=== PATIENT | male | born 1950 | race African-American/Black ===

== ENCOUNTER 2018-11-08 19:24 | Inpatient (IN) | payer OTHER ==
[~2018-11-08 19:24] MED LIST: ISOVUE-370 76%-LOCM 1 ML ONE
[2018-11-08] MEDS ORDERED: Morphine 4 MG/ML VIAL ONE (19:46)
[2018-11-08] MEDS ORDERED: Ondansetron PF 4 MG/2 ML Vial ONE ×2 (19:46→19:47)
--- NOTE | 2018-11-08 20:04 | RAD ---
Chest one view HISTORY: Chest pain. Vomiting. FINDINGS: No comparison. Cardiac silhouette is Identified by projection. Pulmonary vasculature upper limits of normal. Soft tissue prominence along the right suprahilar level extending to the hilum. No lobar consolidation or evidence of pneumothorax. utilization manager leads overlie the chest. Metallic clips overlie the right axilla. IMPRESSION: Masslike prominence of the right hilum. Prior exams not available for direct comparison. Please consider CT chest for better characterization.
[2018-11-08 20:07] LABS: #Lymphocytes 0.7 thou/uL (1.20-3.40); #Monocytes 0.8 thou/uL (0.11-0.59); #Neutrophils 10.7 thou/uL (1.40-6.50); %Basophils 0.1 % (0.0-1.0); %Eosinophils 0.1 % (0.0-10.0); %Lymphocytes 5.4 % (21.0-51.0); %Monocytes 6.2 % (0.0-10.0); %Neutrophils 88.2 % (42.0-75.0); Mean Corpuscular HGB CONC 32.4 g/dL (32.0-36.0); Mean Corpuscular Hemoglobin 30.6 pg (27.0-31.0); Mean Corpuscular Volume 94.4 fL (78.0-98.0); Mean Platelet Volume 7.5 fL (7.4-10.4); Platelet Count 362 thou/uL (130-400); RBC Distribution Width 14.6 % (11.5-14.5); Red Blood Cell (RBC) Count 4.57 mill/uL (4.70-6.10); White Blood Cell (WBC) Count 12.2 thou/uL (4.8-10.8)
[2018-11-08] MEDS ORDERED: Diltiazem 125 MG/25 ML ONE (22:02)
[2018-11-08 22:14] LABS: Albumin 3.6 g/dL (3.4-4.8)
[2018-11-08 22:15] LABS: Chloride 103 mmol/L (98-107); Potassium 5.5 mmol/L (3.5-5.1); Sodium 137 mmol/L (136-145)
[2018-11-08 22:16] LABS: Calcium 8.8 mg/dL (7.8-10.44)
[2018-11-08 22:17] LABS: Globulin 2.9 g/dL (2.4-3.5); Glucose 79 mg/dL (80-115); Protein, Total 6.5 g/dL (5.8-8.1)
[2018-11-08 22:18] LABS: Anion Gap 25 mmol/L (10-20); Bilirubin, Total 0.9 mg/dL (0.2-1.2); Carbon Dioxide 15 mmol/L (23-31)
[2018-11-08 22:19] LABS: Alkaline Phosphatase 74 U/L (40-150)
[2018-11-08 22:20] LABS: Calc. Creatinine Clearance 0 mL/min (70-130); Estimated GFR-MDRD 71
[2018-11-08 22:21] LABS: BUN (Urea Nitrogen) 10 mg/dL (8.4-25.7)
[2018-11-08 22:22] LABS: ALT (SGPT) 48 U/L (8-55); AST (SGOT) 93 U/L (5-34)
[2018-11-08 22:23] LABS: Lipase 27 U/L (8-78)
[2018-11-08] MEDS ORDERED: Diltiazem HCl 125 MG, Admixture Fee 1 EACH in Sodium Chloride 0.9% 100 ML IVPB SCH (22:30)
[2018-11-08 22:38] LABS: Bilirubin Negative (Negative); Blood, Urine Large (Negative); Clarity CLEAR (Clear); Glucose, Urine (Dipstick) Negative (Negative); Leukocyte Moderate (Negative); Nitrite Negative (Negative); Protein, Urine (Dipstick) 30 mg/dL (Neg-Trace); Specific Gravity, Urine 1.015 (1.002-1.036); pH, Urine 5.5 (5.0-9.0)
[2018-11-08 22:40] LABS: Bacteria/HPF None Seen HPF (None Seen); Hyaline Casts/LPF 4-6 HYALINE CAST LPF (0-3 Hyaline); Pathc Cast-AUWi Flag 0.27 (0-2.49); Squamous Epithelial 0-3 HPF (0-3)
[2018-11-08] MEDS ORDERED: Piperacillin/Tazobactam 4.5 GM VIAL ONE (23:12)
--- NOTE | 2018-11-08 23:36 | PDOC.FPRHP ---
- History of Present Illness Chief Complaint: nausea/vom History of Present Illness: 68 yo M from Retirement with PMH of right sided breast cancer, Hep C, and abdominal mass presents for nausea, vomiting, and abdominal pain. Patient somewhat poor historian. Pt initially reports that it started today after he was constipated, reports green vomitus. Later, he reports that he has had it for the past 1-2 months, since prior to a recent admission where he was found to have an abdominal mass. At that time, he refused to have a biopsy, however he is wishing for further work up today. Reports he has been worked up for blood clot in swollen rt leg he has had for past 1-2 months, that was negative. Reports bright red blood drops on toilet paper occasionally. No fevers, dysuria , hematuria, chest pain or palpitations. Reports he gets SOB when walking 3-4 blocks with walker, or walking 1 flight of stairs. In ED, P 124, R 30, afebrile. New onset afib with RVR. started on diltiazem drip. Started on vanc and zosyn, given fluids. Lactic acid elevated. 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 denies: fever/chills Eyes: denies: eye pain, vision changes ENT: denies: nasal congestion, rhinorrhea Respiratory: reports: shortness of breath. denies: cough, congestion Cardiovascular: denies: chest pain, palpitation Gastrointestinal: reports: nausea, vomiting, diarrhea, constipation, abdominal pain, GI bleeding (BRBPR (few drops on TP only)) Genitourinary: denies: dysuria, other (hematuria) Skin: denies: rashes, lesions Musculoskeletal: reports: pain, swelling (RLE) Neurological: reports: seizure (reports history of remote seizure, does not know why he had one). denies: syncope Psychological: denies: anxiety, depression - Vital signs BP: [103/63] HR: [124] RR: [30] Tmax: [98.7] Pox: [95]% on [RA] Wt: [71.7] - Physical Exam Constitutional: NAD, well developed HEENT: normocephalic and atraumatic, PERRLA, EOMI, conjunctiva clear, MMM, oropharynx clear Neck: supple, no LAD Heart: normal S1/S2, no murmurs/rubs/gallops, other (3+ pitting edema up to thigh; no swelling of scrotum; Tachycardia, regular rhythm) Lungs: CTAB, no respiratory distress, good air movement, no rales/rhonchi Abdomen: soft, bowel sounds present, no masses/distention, other (mild diffuse tenderness of abdomen) Musculoskeletal: normal tone Neurological: no focal deficit, CN II-XII intact Skin: no rash/lesions, good turgor Heme/Lymphatic: no unusual bruising or bleeding, no purpura Psychiatric: other (slurring of speech, normal mood, somewhat poor judgment/ insight) FMR H&P: Results - Labs Result Diagrams: 11/09/18 01:57 11/09/18 01:57 Lab results: WBC 12.2 thou/uL (4.8-10.8) H 11/08/18 19:50 Hgb 14.0 g/dL (14.0-18.0) 11/08/18 19:50 Hct 43.1 % (42.0-52.0) 11/08/18 19:50 MCV 94.4 fL (78.0-98.0) 11/08/18 19:50 Plt Count 362 thou/uL (130-400) 11/08/18 19:50 Neutrophils % 88.2 % (42.0-75.0) H 11/08/18 19:50 Sodium 137 mmol/L (136-145) 11/08/18 21:56 Potassium 5.5 mmol/L (3.5-5.1) H 11/08/18 21:56 Chloride 103 mmol/L (98-107) 11/08/18 21:56 Carbon Dioxide 15 mmol/L (23-31) L 11/08/18 21:56 BUN 10 mg/dL (8.4-25.7) 11/08/18 21:56 Creatinine 1.22 mg/dL (0.7-1.3) 11/08/18 21:56 Glucose 79 mg/dL (80-115) L 11/08/18 21:56 Lactic Acid 5.0 mmol/L (0.5-2.2) H* 11/08/18 22:11 Calcium 8.8 mg/dL (7.8-10.44) 11/08/18 21:56 Total Bilirubin 0.9 mg/dL (0.2-1.2) 11/08/18 21:56 AST 93 U/L (5-34) H 11/08/18 21:56 ALT 48 U/L (8-55) 11/08/18 21:56 Alkaline Phosphatase 74 U/L (40-150) 11/08/18 21:56 Serum Total Protein 6.5 g/dL (5.8-8.1) 11/08/18 21:56 Albumin 3.6 g/dL (3.4-4.8) 11/08/18 21:56 Lipase 27 U/L (8-78) 11/08/18 21:56 Urine Ketones 40 mg/dL (Negative) H 11/08/18 22:22 Urine Blood Large (Negative) H 11/08/18 22:22 Urine Nitrite Negative (Negative) 11/08/18 22:22 Ur Leukocyte Esterase Moderate (Negative) H 11/08/18 22:22 Urine RBC 7-10 HPF (0-3) H 11/08/18 22:22 Urine WBC Greater Than 50-TNTC HPF (0-3) H 11/08/18 22:22 Ur Squamous Epith Cells 0-3 HPF (0-3) 11/08/18 22:22 Urine Bacteria None Seen HPF (None Seen) 11/08/18 22:22 - EKG Interpretation EKG: EKG: Afib with RVR, LAD, septal infarct age undetermined - Radiology Interpretation Chest x-ray Status: image reviewed by me, report reviewed by me Additional comment: mass like prominence Rt hilum FMR H&P: A/P - Problem List (1) Pulmonary embolism Current Visit: Yes Status: Acute Code(s): I26.99 - OTHER PULMONARY EMBOLISM WITHOUT ACUTE COR PULMONALE (2) Sepsis Current Visit: Yes Status: Acute Code(s): A41.9 - SEPSIS, UNSPECIFIED ORGANISM (3) Atrial fibrillation with RVR Current Visit: Yes Status: Acute Code(s): I48.91 - UNSPECIFIED ATRIAL FIBRILLATION (4) Dvt femoral (deep venous thrombosis) Current Visit: Yes Status: Acute Code(s): I82.419 - ACUTE EMBOLISM AND THROMBOSIS OF UNSPECIFIED FEMORAL VEIN (5) Hx of hepatitis C Current Visit: Yes Status: Chronic Code(s): Z86.19 - PERSONAL HISTORY OF OTHER INFECTIOUS AND PARASITIC DISEASES - Plan Suspected Diffuse Metastatic process, seen on CT -uncertain primary source -CT abd/pelvis -Most likely cause of pt abdominal pain, nausea and vomiting -UA showed blood, +WBC, no nitrates or bacteria -Ucx pending -zofran PRN -Consider oncology consult -Palliative consulted for goals of care Sepsis, most likely 2/2 metastasis -UA showed blood, +WBC, no nitrates or bacteria -Ucx pending -Bl cx pending -WBC elevated -Given bolus IV fluids -continue empiric vanc/zosyn until cx return -Procal pending New Onset Afib with RVR - Pt reports no prior cardiac hx - Initially on diltiazem, then taken off when pt jeffery to 40s - Now Pulse stable 90-low 100s - Cardiology consult in AM DVT femoral vein - most likely 2/2 metastasis - continue th lovenox Segmental PE seen on CTA - therapeutic lovenox - pt will need to be most likely bridged to warfarin - PRN O2 Hep C - Pt reports s/p treatment Dispo: admit to tele obs Diet: regular DVT: th lovenox PCP: [facility], [facility] Code status: Full FMR H&P: Upper Level - Pertinent history 68 y/o M presents from [facility] for nausea/vomiting. History not very clear, but pt was recently hospitalized in [place] for 3w. Reportedly masses were seen and pt refused biopsy. Began feeling nauseated this AM with vomiting. States he feels well now without complaints. did present with tachycardia in the 140's.S/p Diltiazem bolus and drip in ED with IVF with improved afib RVR to a rate or 100 upon exam. Pt is a very poor historian. Additionally: PAged at 0430, HR bradycardic into 40's. diltiazem dc't, pulse at 64 upon exam and asymptomatic during entire episode. - Pertinent findings CTA chest:right-sided mediastinal soft tissue mass measuring at least 3.8x7x8.7 cm with compressing and possibly invading the SVC, filling defect within the right lower lobe pulmonary arteries compatible with segmental pulmonary emboli, hydronephrosis of the right kidney which is incompletely visualized, innunemerable soft tissue nodules seen within the upper abdomen suspicious for metastatic disease. CT abd/pelvis: right pelvic iliac chain, left upper quadrant intraperitoneal and splenic masses consistent with neoplasm, compression of the ureters, right greater than left resulting in differential decreased enhancement of the right kidney and moderate hydroureteronephrosis, compression of the right iliac vein with associated right femoral vein thrombosis. CXR: Hilar mass on R seen Lactic Acid 5 - Plan Date/Time: 11/08/18 0227 IZion, have evaluated this patient and agree with findings/plan as outlined by planner intern resident. Pertinent changes/additions are listed here. # Suspected Diffuse Metastasis - Unsure primary location. Oncology consult and would likely proceed with biobsy if a candidate. Likely cause of elevated Lactic acid vs sepsis, but will continue empiric abx until cultures return,. Also consider transfer back to [place] as he has established care there and has had a full workup regarding these problems. Pt likely needs hospice/ palliative care as he has multiple problems relating to presumed cancer. # Afib with RVR - NEw onset and rate controlled on IV diltiazem and plan to transition to PO medication as needed. Goal <110. Of Note, automated pulse machine no accurate; was reading rate 140-160, but upon pulse check pt 100-110. Episode of bradycardia noted into 40's and now off IV diltiazem. S/p 3LNS. # Segmental PE - Continue therapeutic LMWH, Stable respiratory status. O2 PRN for saturations >90%. # R Hydronephrosis - 2/2 ureter obstruction. Will consider nephro consult for possible stent as he did have hematuria on UA. # Gastritis - Likely 2/2 mets. Antiemetic medications PRN. # DVT Femoral vein - 2/2 malignancy. Continue Lovenox at this time and consider discharge on Lovenox. CODE: Full Addendum - Attending - Attending Attestation Date/Time: 11/09/18 6539 I personally evaluated the patient and discussed the management with Dr. Riya Gonzalez/ Mo at 2 am. H&P repeated by me. I agree with the History, Examination, Assessment and Plan documented above with any addition or exceptions noted below. 68 y/o BM who is a very poor historian with PMH of breast mass (unsure if malignancy or not), RLE swelling which he says was evaluated and NOT due to a clot, and several month history of n/v/abdominal pain. Recently has a 3 weeks hospitalization in [place] where he states they found a mass in his abdomen but he declined treatment at that time. Also he notes some kind of irregular heart beat. He presented to our ER for n/v. Found to have T 100.5, afib with RVR (rate 130-150s), elevated lactate. 1)Sepsis with unknown source- started on broad spectrum abx and fluid resuscitation. Fever and 2) Metastatic disease, unknown primary- patient has had significant workup in [place]. Will attempt to transfer patient for continued evaluation there. If unable to transfer will need oncology consult 3) PE and DVT- therapeutic lovenox. secondary to malignancy 4) Hyponephrosis secondary to abdominal masses- if not transferred will probably need urology consult. 5) Afib with RVR- diltiazem gtt at 5. After CT results returned, I had a candid conversation with patient about the results and the grave prognosis. We began to discuss his wishes and the options of palliative care vs. more aggressive workup and treatment. I am unsure if he understands and if he is not transferred will need palliative care consult. He did not give any indication which way he was leaning.
[2018-11-09] MEDS ORDERED: Ondansetron ODT 4 MG TAB PO PRN (01:19)
[2018-11-09] MEDS ORDERED: Acetaminophen 650 MG Suppository PR PRN (01:19)
[2018-11-09] MEDS ORDERED: Acetaminophen 325 MG TAB PO PRN (01:19)
[2018-11-09] MEDS ORDERED: Bisacodyl 5 MG TAB PO SCH (01:30)
[2018-11-09] MEDS ORDERED: Vancomycin HCl 1.25 GM in Sodium Chloride 0.9% 250 ML 250 ML IVPB SCH (01:30)
[2018-11-09] MEDS ORDERED: Enoxaparin Sodium 40 MG/0.4 ML SYRINGE SC SCH ×2 (01:30→09:00)
[2018-11-09] MEDS ORDERED: Diltiazem 125 MG in Sodium Chloride 0.9% 100 ML IVPB SCH ×2 (01:30→09:30)
[2018-11-09] MEDS ORDERED: Vancomycin HCl 1.5 GM in Sodium Chloride 0.9% 250 ML 300 ML IVPB SCH (01:45)
[2018-11-09 02:06] LABS: #Monocytes 1.3 thou/uL (0.11-0.59); #Neutrophils 9.7 thou/uL (1.40-6.50); %Basophils 0.3 % (0.0-1.0); %Eosinophils 0.2 % (0.0-10.0); %Lymphocytes 8.3 % (21.0-51.0); %Monocytes 10.6 % (0.0-10.0); %Neutrophils 80.7 % (42.0-75.0); Hemoglobin 12.4 g/dL (14.0-18.0); Mean Corpuscular HGB CONC 31.9 g/dL (32.0-36.0); Mean Corpuscular Hemoglobin 29.9 pg (27.0-31.0); Mean Corpuscular Volume 93.8 fL (78.0-98.0); Mean Platelet Volume 6.3 fL (7.4-10.4); Platelet Count 372 thou/uL (130-400); RBC Distribution Width 13.6 % (11.5-14.5); Red Blood Cell (RBC) Count 4.14 mill/uL (4.70-6.10)
[2018-11-09 02:28] LABS: Lactic Acid 4.8 mmol/L (0.5-2.2)
[2018-11-09 02:34] LABS: Anion Gap 21 mmol/L (10-20); BUN (Urea Nitrogen) 10 mg/dL (8.4-25.7); Calc. Creatinine Clearance 0 mL/min (70-130); Calcium 8.5 mg/dL (7.8-10.44); Carbon Dioxide 15 mmol/L (23-31); Chloride 105 mmol/L (98-107); Estimated GFR-MDRD 74; Glucose 81 mg/dL (80-115); Potassium 4.3 mmol/L (3.5-5.1); Sodium 137 mmol/L (136-145)
[2018-11-09 03:15] LABS: INR-International Normal Ratio 1.1; PTT 27.9 SEC (22.9-36.1); Prothrombin Time 14.4 SEC (12.0-14.7)
[2018-11-09 03:29] LABS: Troponin I 0.011 ng/mL (< 0.028)
[2018-11-09] MEDS ORDERED: Ondansetron PF 4 MG/2 ML Vial ONE ×3 (04:32→14:50)
[2018-11-09] MEDS ORDERED: Enoxaparin Sodium 80 MG/0.8 ML SYRINGE ONE (04:54)
[2018-11-09] MEDS ORDERED: Ondansetron ODT 8 MG TAB SL PRN (06:45)
[2018-11-09 06:56] LABS: Troponin I Less than 0.010 ng/mL (< 0.028)
[2018-11-09] MEDS ORDERED: Vancomycin HCl 500 MG in Sodium Chloride 0.9% 100 ML IVPB SCH (08:00)
[2018-11-09] MEDS ORDERED: Piperacillin/Tazobactam 4.5 GM VIAL ONE ×2 (08:35→14:52)
[2018-11-09] MEDS ORDERED: Sodium Chloride 0.9% 100 ML ONE ×2 (08:35→14:52)
[2018-11-09] MEDS: Sodium Chloride 0.9% 1,000 ML IV SCH ×2 (08:37→19:30)
[2018-11-09] MEDS: Piperacillin/Tazobactam 4.5 GM in Sodium Chloride 0.9% 100 ML IVPB SCH ×3 (08:37→21:06)
[2018-11-09] MEDS: Ondansetron PF 4 MG/2 ML Vial IVP PRN ×3 (08:38→20:56)
--- NOTE | 2018-11-09 08:49 | CT ---
PRELIMINARY REPORT/[facility]/EMERGENCY AFTER HOURS PROCEDURE: Addendum created by Adelso Magdaleno MD on 11/09/2018 1:22 AM Central Time ([place] & [place]) Findings were dis cussed with ELSA MARCANO at 11/09/2018 1:22 AM CDT. Initial Report created on 11/09/2018 1:18 AM Cent ral Time ([place] & [place]) EXAM: CT Angiography Chest With Contrast EXAM DATE/TIME: 11/09/2018 12:13 AM CLINICAL HISTORY: 68 years old, male; Pain; Chest pain; Patient HX: M68 reports to ed C/O vomiting, since 1500 today. P T was given 25 phenergan im at [facility]. PT has associated abdominal pain. PT reports swelling and s oreness in right leg x1 month. PT denies SOB, cardiac HX. PT was recently at [facility], but refused biopsy. PT did not take hptn medication today. Pmhx hptn. TECHNIQUE: Imaging protocol: Axial computed tomographic angiography images of the chest with intravenous contras t using CT angiography protocol. 3D rendering: MIP reconstructed images were created and reviewed. COMPARISON: No relevant prior studies available. FINDINGS: Pulmonary arteries: There is filling defect within the RIGHT lower lobe pulmonary arteries compatible with segmental pulmonary emboli. Aorta: Normal. No aortic aneurysm. No aortic dissection. Superior vena cava: There is RIGHT sided mediastinal soft tissue mass measuring at least 3.8 x 7 x 8. 7 cm with compressing and possibly invading the SVC. Other veins: There are probably several small venous collaterals within the LEFT mediastinum. Lungs: There is subpleural atelectasis of the dependent portions of the lungs. There is RIGHT upper lobe linear atelectasis and/or scarring. Pleural space: There is trace RIGHT pleural effusion. Heart: Normal. No cardiomegaly. No pericardial effusion. Kidneys and ureters: There is hydronephrosis of the RIGHT kidney which is incompletely visualized. Lymph nodes: Unremarkable. No enlarged lymph nodes. Bones/joints: Unremarkable. No acute fracture. Soft tissues: The are numerable soft tissue nodules seen within the upper abdomen suspicious for meta static disease. IMPRESSION: 1. There is RIGHT sided mediastinal soft tissue mass measuring at least 3.8 x 7 x 8.7 cm with hang sing and possibly invading the SVC. 2. There is filling defect within the RIGHT lower lobe pulmonary arteries compatible with segmental p ulmonary emboli. 3. There is hydronephrosis of the RIGHT kidney which is incompletely visualized. 4. The are innumerable soft tissue nodules seen within the upper abdomen suspicious for metastatic di sease. Thank you for allowing us to participate in the care of your patient. Dictated and Authenticated by: Adelso Magdaleno MD 11/09/2018 1:18 AM Central Time ([place] & [place]) FINAL REPORT CTA CHEST: IMPRESSION: I agree with the preliminary report provided by [facility]. Please see the preliminary report for full details. POS: BH
--- NOTE | 2018-11-09 08:54 | CT ---
PRELIMINARY REPORT/[facility]/EMERGENCY AFTER HOURS PROCEDURE: EXAM: CT Abdomen and Pelvis With Contrast EXAM DATE/TIME: 11/09/2018 12:13 AM CLINICAL HISTORY: 68 years old, male; Pain; Abdominal pain; Acute; Patient HX: M68 reports to ed C/O vomiting, since 15 00 today. PT was given 25 phenergan im at [facility]. PT has associated abdominal pain. PT reports swe lling and soreness in right leg x1 month. PT denies SOB, cardiac HX. PT was recently at [facility], but refused biopsy. PT did not take hptn medication today. Pmhx hptn. TECHNIQUE: Imaging protocol: Axial computed tomography images of the abdomen and pelvis with intravenous contras t. Coronal reformatted images were created and reviewed. COMPARISON: No relevant prior studies available. FINDINGS: Lower thorax: No acute findings. ABDOMEN: Liver: There are subtle hypodensities within the liver which are too small to characterize. Gallbladder and bile ducts: The gallbladder is normal. There is no evidence of biliary ductal dilatio n. Pancreas: The pancreas appears normal. No ductal dilatation. Spleen: See intraperitoneal space findings. Adrenals: The adrenal glands are normal. Kidneys and ureters: There is moderate RIGHT hydronephrosis probably from distal compression by patient's pelvic mass. Differential enhancement of the RIGHT kidney relative the LEFT is also note d (delayed on the RIGHT). Mild LEFT hydroureteronephrosis is also noted. Bilateral renal cysts are noted. Stomach and bowel: Normal. No obstruction. No mucosal thickening. Appendix: No evidence of appendicitis. PELVIS: Bladder: Unremarkable as visualized. Reproductive: There are clips within the scrotum. ABDOMEN and PELVIS: Intraperitoneal space: There is LEFT upper quadrant mass measuring at least 10 x 8 x 11 cm as well as several masses noted within the spleen an additional smaller soft tissue masses scattered throughout the abdomen. Bones/joints: There is RIGHT hip ORIF. Soft tissues: There is a 12 x 8 x 10 cm soft tissue mass in the RIGHT pelvis/RIGHT iliac chain compre ssing the RIGHT common iliac vein. Vasculature: There is probably thrombosis of the RIGHT femoral vein. Lymph nodes: See soft tissue finding. IMPRESSION: 1. RIGHT pelvic iliac chain, LEFT upper quadrant intraperitoneal and splenic masses consistent with n eoplasm. 2. Compression of the ureters, RIGHT greater than LEFT resulting in differential decreased enhancemen t of the RIGHT kidney and moderate hydroureteronephrosis. 3. Compression of the RIGHT iliac vein with associated RIGHT femoral vein thrombosis. Findings were discussed with ELSA MARCANO at 11/09/2018 proximally 1:21 AM CDT. Thank you for allowing us to participate in the care of your patient. Dictated and Authenticated by: Adelso Magdaleno MD 11/09/2018 1:28 AM Central Time ([place] & [place]) FINAL REPORT CT ABDOMEN AND PELVIS: I agree with the preliminary report provided by [facility]. There is a very prominent right pelvic soft tissue mass causing moderate right-sided hydronephrosis, which may reflect prominent iliac chain lymphadenopathy or possibly a soft tissue sarcomatous mass of the right hemipelvis. There are prominent soft tissue masses seen within the left upper quadrant of the abdomen which may reflect confluent lymphadenopathy. There are extensive masses involving the spl een. There is lymphadenopathy of the upper retroperitoneum. No suspicious osseous lesion is identified. There are subtle hypodensities within the liver that are too small to fully characterize. CT guided percutaneous sampling of the larger lesion in the right hemipelvis may be helpful for furth er characterization. POS: BH
[2018-11-09] MEDS ORDERED: Morphine 4 MG/ML VIAL SLOW IVP PRN (09:30)
[2018-11-09] MEDS ORDERED: Morphine 2 MG/ML SYRINGE ONE (09:46)
[2018-11-09] MEDS: Morphine 2 MG/ML SYRINGE SLOW IVP PRN ×2 (09:59→23:01)
[2018-11-09] MEDS: Senokot S 8.6-50 MG TAB PO SCH ×2 (10:18→21:00)
[2018-11-09] MEDS ORDERED: Enoxaparin Sodium 80 MG/0.8 ML SYRINGE SC SCH (17:00)
[2018-11-09] MEDS: Enoxaparin Sodium 80 MG/0.8 ML SYRINGE SC SCH (20:59)
[2018-11-10] MEDS: Ondansetron PF 4 MG/2 ML Vial IVP PRN ×2 (02:10→08:20)
[2018-11-10] MEDS: Piperacillin/Tazobactam 4.5 GM in Sodium Chloride 0.9% 100 ML IVPB SCH (05:27)
[2018-11-10] MEDS: Sodium Chloride 0.9% 1,000 ML IV SCH ×3 (05:28→18:36)
[2018-11-10 05:40] LABS: #Lymphocytes 0.9 thou/uL (1.20-3.40); #Neutrophils 8.8 thou/uL (1.40-6.50); %Basophils 0.4 % (0.0-1.0); %Eosinophils 0.1 % (0.0-10.0); %Lymphocytes 8.4 % (21.0-51.0); %Monocytes 9.6 % (0.0-10.0); %Neutrophils 81.5 % (42.0-75.0); Hemoglobin 11.9 g/dL (14.0-18.0); Mean Corpuscular HGB CONC 31.6 g/dL (32.0-36.0); Mean Corpuscular Hemoglobin 29.9 pg (27.0-31.0); Mean Corpuscular Volume 94.4 fL (78.0-98.0); Mean Platelet Volume 6.9 fL (7.4-10.4); Platelet Count 326 thou/uL (130-400); RBC Distribution Width 13.7 % (11.5-14.5); White Blood Cell (WBC) Count 10.8 thou/uL (4.8-10.8)
[2018-11-10 05:48] LABS: Anion Gap 19 mmol/L (10-20); BUN (Urea Nitrogen) 8 mg/dL (8.4-25.7); Calc. Creatinine Clearance 50 mL/min (70-130); Carbon Dioxide 19 mmol/L (23-31); Chloride 105 mmol/L (98-107); Estimated GFR-MDRD 60; Glucose 85 mg/dL (80-115); Potassium 4.1 mmol/L (3.5-5.1); Sodium 139 mmol/L (136-145)
[2018-11-10] MEDS ORDERED: Vancomycin HCl 1.25 GM in Sodium Chloride 0.9% 250 ML 250 ML IVPB SCH (06:00)
[2018-11-10] MEDS ORDERED: Vancomycin HCl 1.25 GM in Premix Bag 1 BAG IVPB SCH (06:00)
[2018-11-10] MEDS ORDERED: Vancomycin HCl 1.5 GM in Sodium Chloride 0.9% 250 ML 300 ML IVPB SCH (06:00)
--- NOTE | 2018-11-10 06:28 | PDOC.FM ---
- Subjective Subjective: Overnight, patient remained in sinus tachycardic. Patient asymptomatic. Patient still awaiting bed in [place]. On exam this morning, the patient reports nausea and vomiting. Patient has not tolerated PO very well due to this. Reports 10/10 abdominal pain. Denies fever/chills. - Objective MAR Reviewed: Yes Vital Signs & Weight: Vital Signs (12 hours) Temp Pulse Resp BP Pulse Ox 11/09/18 23:48 97.5 F L 119 H 18 141/86 H 100 11/09/18 20:00 98.8 F 125 H 18 141/84 H 100 Weight Weight 73.437 kg I&O: 11/08/18 11/09/18 11/10/18 06:59 06:59 06:59 Intake Total 2971 Output Total 860 Balance 2111 Result Diagrams: 11/10/18 04:47 11/10/18 04:47 Phys Exam - Physical Examination mild distress due to pain, nausea HEENT: PERRLA, sclera anicteric dry MM Neck: supple, full ROM Respiratory: clear to auscultation bilateral Cardiovascular: no significant murmur, no rub tachycardic Gastrointestinal: soft, no distention TTP diffusely, hypoactive bowel sounds Neurological: moves all 4 limbs Psychiatric: normal affect Skin: no rash, normal turgor, cap refill <2 seconds Dx/Plan (1) Atrial fibrillation with RVR Code(s): I48.91 - UNSPECIFIED ATRIAL FIBRILLATION Status: Acute (2) Dvt femoral (deep venous thrombosis) Code(s): I82.419 - ACUTE EMBOLISM AND THROMBOSIS OF UNSPECIFIED FEMORAL VEIN Status: Acute (3) Pulmonary embolism Code(s): I26.99 - OTHER PULMONARY EMBOLISM WITHOUT ACUTE COR PULMONALE Status : Acute (4) Hx of hepatitis C Code(s): Z86.19 - PERSONAL HISTORY OF OTHER INFECTIOUS AND PARASITIC DISEASES Status: Chronic - Plan Plan: Diffuse Metastatic process, causing N/V/abdominal pain Uncertain primary source. Patient has possible hx of stomach cancer diagnosed at [place] facility where the patient had a 3 week stay. IMAGING FINDINGS: - CT abd/pelvis: Right pelvic iliac chain, left upper quadrant intraperitoneal and splenic masses consistent w/ neoplasm, compression of ureters R>L, compression of right iliac vein w/ right femoral vein thrombosis. - CTA Chest: Right sided mediastinal soft tissue mass measuring 3.8 x 7 x 8.7cm with compression/invading of SVC. Filling defect in right LL pulm arteries compatible with segmental pulm eboli. Hydronephrosis of Right kidney. Innumberable soft tissue nodules in upper abdomen likely metastatic disease. - CXR: mass like prominence of right hilum - UA showed blood, +WBC, no nitrates or bacteria -Ucx normal skin jaime, blood cx no growth to date - Will dc abx as patient is afebrile, no infection source - zofran, phenergan PRN - Lactic acid uptrending - will give fluid bolus and continue mIVF - Palliative consulted for goals of care - Patient being transferred to [facility] for continuity of care and further work up of abdominal masses. Afib with RVR, resolved - Pt reports no prior cardiac hx - patient converted to sinus tachy and has remained there overnight - no longer on dilt drip, patient asymp - Will continue to monitor DVT femoral vein - most likely 2/2 metastasis - continue th lovenox Segmental PE seen on CTA - therapeutic lovenox - PRN O2 Hep C - Pt reports s/p treatment Dispo: transfer to [place] Diet: regular DVT: th lovenox [facility]CP: [facility] Code status: Full Addendum - Attending - Attending Attestation Date/Time: 11/10/18 7615 I personally evaluated the patient and discussed the management with Dr. Jones. I agree with the History, Examination, Assessment and Plan documented above with any addition or exceptions noted below. Diffuse metastatic disease without known primary- we have been attempting transfer to [facility] (where his previous workup and 3 week hospitalization had occurred but this has been slow and we are unsure on timing). Patient previously declined workup but now desires further workup and treatment. Will consult oncology since unsure on the timing of transfer. Extensive DVT/PE- on lovenox. hemodynamically stable. Sinus tachycardia- given another 1L fluid bolus today and continue maintanance IVF. Elevated Lactate- probably from extensive cancer burden- IVF and trend. D/C abx as cultures negative.
[2018-11-10 07:40] LABS: Lactic Acid 5.3 mmol/L (0.5-2.2)
[2018-11-10] MEDS ORDERED: Promethazine HCl 25 MG/ML VIAL IM/IV PRN (08:12)
[2018-11-10] MEDS: Senokot S 8.6-50 MG TAB PO SCH ×2 (08:21→20:41)
[2018-11-10] MEDS ORDERED: Labetalol HCl 100 MG/20 ML VIAL SLOW IVP ONE (08:30)
[2018-11-10] MEDS ORDERED: Lactated Ringer's 1,000 ML IV SCH (08:30)
[2018-11-10] MEDS ORDERED: Prevnar 13-Val Conj/PF 0.5 ML SYRINGE IM ONE (09:00)
[2018-11-10] MEDS ORDERED: Metoprolol Tartrate 100 MG TAB PO SCH (09:30)
[2018-11-10] MEDS ORDERED: Pantoprazole 40 MG VIAL IVP SCH (09:30)
[2018-11-10] MEDS: Pantoprazole 40 MG VIAL IVP SCH (10:02)
[2018-11-10] MEDS: Enoxaparin Sodium 80 MG/0.8 ML SYRINGE SC SCH ×2 (10:10→20:40)
[2018-11-10] MEDS: Metoprolol Tartrate 100 MG TAB PO SCH (10:46)
[2018-11-10] MEDS: Morphine 4 MG/ML VIAL SLOW IVP PRN ×2 (11:48→18:33)
[2018-11-10 14:50] VITALS: BMI 24.6
[2018-11-11] MEDS: Sodium Chloride 0.9% 1,000 ML IV SCH ×3 (01:52→21:19)
[2018-11-11] MEDS: Morphine 4 MG/ML VIAL SLOW IVP PRN (04:34)
[2018-11-11 05:23] LABS: #Eosinphils 0.1 thou/uL (0.0-0.7); #Monocytes 1.1 thou/uL (0.11-0.59); #Neutrophils 6.4 thou/uL (1.40-6.50); %Basophils 0.3 % (0.0-1.0); %Eosinophils 0.8 % (0.0-10.0); %Lymphocytes 11.3 % (21.0-51.0); %Monocytes 12.3 % (0.0-10.0); %Neutrophils 75.3 % (42.0-75.0); Hemoglobin 11.6 g/dL (14.0-18.0); Mean Corpuscular HGB CONC 31.5 g/dL (32.0-36.0); Mean Corpuscular Hemoglobin 29.8 pg (27.0-31.0); Mean Corpuscular Volume 94.8 fL (78.0-98.0); Mean Platelet Volume 6.8 fL (7.4-10.4); Platelet Count 329 thou/uL (130-400); RBC Distribution Width 13.7 % (11.5-14.5); Red Blood Cell (RBC) Count 3.89 mill/uL (4.70-6.10); White Blood Cell (WBC) Count 8.5 thou/uL (4.8-10.8)
[2018-11-11 05:39] LABS: Anion Gap 18 mmol/L (10-20); BUN (Urea Nitrogen) 6 mg/dL (8.4-25.7); Calc. Creatinine Clearance 58 mL/min (70-130); Calcium 8.7 mg/dL (7.8-10.44); Carbon Dioxide 17 mmol/L (23-31); Chloride 106 mmol/L (98-107); Estimated GFR-MDRD 70; Potassium 4.1 mmol/L (3.5-5.1); Sodium 137 mmol/L (136-145)
[2018-11-11 05:44] LABS: Glucose 59 mg/dL (80-115)
[2018-11-11] MEDS ORDERED: Dextrose 50% Abboject 50 ML SYRINGE ONE (05:58)
--- NOTE | 2018-11-11 06:45 | PDOC.FM ---
- Subjective Subjective: Overnight, the patient had an episode of hypoglycemia and was given juice with increase in glucose. On exam this morning, patient was sitting up at the bedside. Nausea/vomiting has improved since yesterday. Patient stated pain was much improved. Patient understands that biopsy is planned for later today. - Objective MAR Reviewed: Yes Vital Signs & Weight: Vital Signs (12 hours) Temp Pulse Resp BP Pulse Ox 11/11/18 04:00 98.2 F 97 16 131/79 97 11/11/18 00:00 98.2 F 96 18 124/69 96 11/10/18 19:30 98 F 98 16 134/79 97 Weight Admit Weight 71.668 kg Weight 74.208 kg I&O: 11/09/18 11/10/18 11/11/18 06:59 06:59 06:59 Intake Total 2971 3620 Output Total 860 2280 Balance 2111 1340 Result Diagrams: 11/11/18 04:29 11/11/18 04:29 Phys Exam - Physical Examination Constitutional: NAD HEENT: PERRLA, moist MMs, sclera anicteric Neck: supple, full ROM Respiratory: no wheezing, no rales, no rhonchi, clear to auscultation bilateral Cardiovascular: RRR, no significant murmur, no rub Gastrointestinal: soft, non-tender, no distention, positive bowel sounds Neurological: non-focal, moves all 4 limbs Psychiatric: normal affect, A&O x 3 Skin: no rash, normal turgor, cap refill <2 seconds Dx/Plan (1) Atrial fibrillation with RVR Code(s): I48.91 - UNSPECIFIED ATRIAL FIBRILLATION Status: Acute (2) Dvt femoral (deep venous thrombosis) Code(s): I82.419 - ACUTE EMBOLISM AND THROMBOSIS OF UNSPECIFIED FEMORAL VEIN Status: Acute (3) Pulmonary embolism Code(s): I26.99 - OTHER PULMONARY EMBOLISM WITHOUT ACUTE COR PULMONALE Status : Acute (4) Hx of hepatitis C Code(s): Z86.19 - PERSONAL HISTORY OF OTHER INFECTIOUS AND PARASITIC DISEASES Status: Chronic - Plan Plan: Diffuse Metastatic process, causing N/V/abdominal pain Uncertain primary source. Patient has possible hx of stomach cancer diagnosed at [facility] where the patient had a 3 week stay. Patient with hx of breast cancer on right. IMAGING FINDINGS: - CT abd/pelvis: Right pelvic iliac chain, left upper quadrant intraperitoneal and splenic masses consistent w/ neoplasm, compression of ureters R>L, compression of right iliac vein w/ right femoral vein thrombosis. - CTA Chest: Right sided mediastinal soft tissue mass measuring 3.8 x 7 x 8.7cm with compression/invading of SVC. Filling defect in right LL pulm arteries compatible with segmental pulm eboli. Hydronephrosis of Right kidney. Innumberable soft tissue nodules in upper abdomen likely metastatic disease. - CXR: mass like prominence of right hilum - UA showed blood, +WBC, no nitrates or bacteria -Ucx normal skin jaime, blood cx no growth to date - Will dc abx as patient is afebrile, no infection source - zofran, phenergan PRN - Lactic acid uptrending - will give fluid bolus and continue mIVF - Palliative consulted for goals of care - Due to delay in transfer, will initiate work up of masses while patient is here - CT guided biopsy planned for 11/11, patient NPO, will consult Oncology once path results - Will continue to communicate with [facility] and transfer the patient as soon as possible. Afib with RVR, resolved - Pt reports no prior cardiac hx - patient converted to sinus tachy and has remained there overnight - no longer on dilt drip, patient asymp - Will continue to monitor - Patient on home med metoprolol DVT femoral vein - most likely 2/2 metastasis - continue th lovenox Segmental PE seen on CTA - therapeutic lovenox, will hold lovenox 11/11 for biopsy - PRN O2 Hep C - Pt reports s/p treatment Dispo: transfer to [facility] pending, biopsy planned for 11/11 and will f/u results Diet: NPO for planned biopsy DVT: th lovenox PCP: KIMBERLEE, [facility] Code status: Full Addendum - Attending - Attending Attestation Date/Time: 11/11/18 1150 I personally evaluated the patient and discussed the management with Dr. Jones I agree with the History, Examination, Assessment and Plan documented above with any addition or exceptions noted below. Metastatic cancer, unknown primary- biopsy per IR today. Will call onc once biopsy results PE/DVT- held lovenox today as need biopsy. Restart in am. Sinus tach- improved with IVF NAYANA- improved with IVF
[2018-11-11] MEDS ORDERED: Metoprolol Tartrate 100 MG TAB PO SCH (09:00)
[2018-11-11] MEDS: Metoprolol Tartrate 100 MG TAB PO SCH (10:04)
[2018-11-11] MEDS: Pantoprazole 40 MG VIAL IVP SCH (10:06)
[2018-11-11] MEDS: Senokot S 8.6-50 MG TAB PO SCH ×2 (10:06→21:19)
[2018-11-11] MEDS ORDERED: Fentanyl 100 MCG/2 ML VIAL ONE (11:21)
[2018-11-11] MEDS ORDERED: Midazolam HCl 2 mg/2 ml Vial ONE (11:21)
[2018-11-11] MEDS ORDERED: Sodium Bicarbonate 2.5 MEQ/5 ML VIAL ONE (12:14)
[2018-11-11] MEDS ORDERED: Acetaminophen 500 MG TAB PO PRN (13:22)
--- NOTE | 2018-11-11 14:18 | CT ---
CT-guided pelvic mass biopsy HISTORY: Pelvic mass. FINDINGS: After explaining the procedure and answering all questions, Limited CT imaging of the pelvi s was performed. Sterile technique, buffered local anesthesia, CT guidance, and an anterior suprapubic approach were used to carefully advanced the tip of a 17-gauge trocar needle into the larg e heterogeneous right iliac chain mass. Position was confirmed with CT. A total of 4 18-gauge biopsy specimens were obtained and submitted to pathology for evaluation to con firm specimen adequacy. It was removed. Postprocedure imaging shows no evidence of complication. Patient tolerated the procedure well and was returned in unchanged condition. IMPRESSION: Technically successful CT-guided biopsy pelvic mass. Pathology is pending.
[2018-11-11] MEDS: Ondansetron PF 4 MG/2 ML Vial IVP PRN (22:48)
[2018-11-11] MEDS: Morphine 2 MG/ML SYRINGE SLOW IVP PRN (23:55)
[2018-11-12] MEDS ORDERED: Promethazine HCl 25 MG in Sodium Chloride 0.9% 50 ML IVPB PRN (01:17)
[2018-11-12] MEDS: Sodium Chloride 0.9% 1,000 ML IV SCH ×2 (03:45→12:41)
--- NOTE | 2018-11-12 06:48 | PDOC.FM ---
- Subjective Subjective: Per nursing, patient had a rough night last night. The patient was up multiple times vomiting and w/ abdominal pain. The patient was resting on exam this morning. - Objective MAR Reviewed: Yes Vital Signs & Weight: Vital Signs (12 hours) Temp Pulse Resp BP Pulse Ox 11/12/18 04:00 97.9 F 113 H 20 154/89 H 97 11/12/18 00:00 98.3 F 114 H 20 145/76 H 96 11/11/18 20:00 99.1 F 97 20 131/78 98 Weight Admit Weight 71.668 kg Weight 73.845 kg I&O: 11/10/18 11/11/18 11/12/18 06:59 06:59 06:59 Intake Total 2971 3620 680 Output Total 860 2280 Balance 2111 1340 680 Result Diagrams: 11/11/18 04:29 11/11/18 04:29 Phys Exam - Physical Examination Constitutional: NAD HEENT: PERRLA, moist MMs, sclera anicteric Neck: supple, full ROM Respiratory: clear to auscultation bilateral Cardiovascular: RRR Gastrointestinal: soft, positive bowel sounds right leg edematous and larger than left Neurological: non-focal, moves all 4 limbs Psychiatric: normal affect, A&O x 3 Skin: no rash, normal turgor, cap refill <2 seconds Dx/Plan (1) Atrial fibrillation with RVR Code(s): I48.91 - UNSPECIFIED ATRIAL FIBRILLATION Status: Acute (2) Dvt femoral (deep venous thrombosis) Code(s): I82.419 - ACUTE EMBOLISM AND THROMBOSIS OF UNSPECIFIED FEMORAL VEIN Status: Acute (3) Pulmonary embolism Code(s): I26.99 - OTHER PULMONARY EMBOLISM WITHOUT ACUTE COR PULMONALE Status : Acute (4) Hx of hepatitis C Code(s): Z86.19 - PERSONAL HISTORY OF OTHER INFECTIOUS AND PARASITIC DISEASES Status: Chronic - Plan Plan: Diffuse Metastatic process, causing N/V/abdominal pain Uncertain primary source. Patient has possible hx of stomach cancer diagnosed at [facility] where the patient had a 3 week stay. Patient with hx of breast cancer on right. IMAGING FINDINGS: - CT abd/pelvis: Right pelvic iliac chain, left upper quadrant intraperitoneal and splenic masses consistent w/ neoplasm, compression of ureters R>L, compression of right iliac vein w/ right femoral vein thrombosis. - CTA Chest: Right sided mediastinal soft tissue mass measuring 3.8 x 7 x 8.7cm with compression/invading of SVC. Filling defect in right LL pulm arteries compatible with segmental pulm eboli. Hydronephrosis of Right kidney. Innumberable soft tissue nodules in upper abdomen likely metastatic disease. - CXR: mass like prominence of right hilum - UA showed blood, +WBC, no nitrates or bacteria -Ucx normal skin jaime, blood cx no growth to date - Will dc abx as patient is afebrile, no infection source - zofran, phenergan PRN - Lactic acid uptrending - will give fluid bolus and continue mIVF - Palliative consulted for goals of care - Due to delay in transfer, will initiate work up of masses while patient is here - CT guided biopsy on 11/11, will consult Oncology once path results - Will continue to communicate with [facility] and transfer the patient as soon as possible. Afib with RVR, resolved - Pt reports no prior cardiac hx - patient converted to sinus tachy and has remained there overnight - no longer on dilt drip, patient asymp - Patient on home med metoprolol DVT femoral vein - most likely 2/2 metastasis - continue th lovenox Segmental PE seen on CTA - therapeutic lovenox - PRN O2 Hep C - Pt reports s/p treatment Dispo: transfer to [facility] pending, biopsy on 11/11 and will f/u results Diet: reg DVT: th lovenox PCP: KIMBERLEE, assisted Code status: Full Addendum - Attending - Attending Attestation Date/Time: 11/12/18 4109 I personally evaluated the patient and discussed the management with Dr. Jones. I agree with the History, Examination, Assessment and Plan documented above with any addition or exceptions noted below. 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
[2018-11-12] MEDS: Metoprolol Tartrate 100 MG TAB PO SCH (08:29)
[2018-11-12] MEDS: Enoxaparin Sodium 80 MG/0.8 ML SYRINGE SC SCH (08:29)
[2018-11-12] MEDS: Senokot S 8.6-50 MG TAB PO SCH (08:29)
[2018-11-12] MEDS: Morphine 2 MG/ML SYRINGE SLOW IVP PRN (09:44)
--- NOTE | 2018-11-12 12:15 | PQF ---
ERICKSON SANTOS CAITLIN *r [id number] CLINICAL DOCUMENTATION IMPROVEMENT CLARIFICATION FORM: ICD-10 Updated PLEASE DO AN ADDENDUM TO THE PROGRESS NOTE WITH ANY DOCUMENTATION UPDATES OR ADDITIONS AND CARRY THROUGH TO DC SUMMARY. THANK YOU. DATE: 11/12 ATTN: DR. TEAGAN COLE/ DR. MILADIS GRANADO Please exercise your independent, professional judgment in responding to the clarification form. Clinical indicators are provided on the bottom of this form for your review. Please check appropriate box(s) to clarify if the following diagnosis has been ruled in or ruled out: SEPSIS [ ] Ruled in diagnosis [ ] Continue to treat [ ] Resolved [ x ] Ruled out diagnosis [ ] Other diagnosis [ ] Unable to determine In addition, please specify: Present on Admission (POA): [ ] Yes [ x ] No [ ] Unable to determine For continuity of documentation, please document condition throughout progress notes and discharge summary. Thank You. CLINICAL INDICATORS - SIGNS / SYMPTOMS / LABS ER PRESENTATION 11/09 - WA: [id number] RR14-30 T: 100.5 WBC: 12.2 LACTIC ACID: 5.0 ER PHYSICIAN DIAGNOSES: SEVERE SEPSIS, UTI H&P 11/09 (TENISHA): ASSESSMENT/PLAN: 2) SEPSIS, MOST LIKELY 2/2 METASTASIS ATTENDING ADDENDUM 11/09 (VANNESA): 1) SEPSIS, W/ UNKNOWN SOURCE, STARTED ON BROAD SPECTRUM ABX & FLUID RESUSCITATION, FEVER & ELEVATED LACTATE PN 11/10 - (KELSEY): PLAN: US SHOWED BLOOD, +WBC, NO NITRATES OR BACTERIA; UCX NORMAL SKIN JUSTINE, BLOOD CX NGTD; WILL DC ABX PT IS AFEBRILE, NO INFECTION SOURCE ATTENDING ADDENDUM 11/10 (VANNESA): SINUS TACH - GIVEN ANOTHER 1L FLUID BOLUS TODAY; ELEVATED LACTATE - PROBABLY FROM EXTENSIVE CANCER BURDEN NO FURTHER MENTION OF SEPSIS TO DATE RISKS: EXTENSIVE METASTATIC CANCER FEVER (100.5 IN ED) ELEVATED WBC (12.2 ON ADMIT, 11/09) TREATMENT: IVF (3L NS IN ER, 11/09; NS 11/09 - PRESENT) IV ANTIBIOTICS (VANCOMYCIN & ZOSYN 11/09 - ) THANK YOU! Caridad (This form is maintained as a part of the permanent medical record) 2014 [employer]. All Rights Reserved Caridad Live RN, BSN [email or web address] Office: [phone] [facility]
--- NOTE | 2018-11-12 13:38 | PDOC.EVN ---
Event Note - Event Note Event Note: DISCHARGE SUMMARY: Admit date: 11/08/18 Discharge date: 11/12/18 Resident: Stella Jones MD Admitting Attending: La Mata MD Discharge Attending: La Mata MD Consults: palliative care, PT/OT Procedures: 11/08: CT abd/pelvis: Right pelvic iliac chain, left upper quadrant intraperitoneal and splenic masses consistent w/ neoplasm, compression of ureters R>L, compression of right iliac vein w/ right femoral vein thrombosis. 11/08: CTA Chest: Right sided mediastinal soft tissue mass measuring 3.8 x 7 x 8.7cm with compression/invading of SVC. Filling defect in right LL pulm arteries compatible with segmental pulm eboli. Hydronephrosis of Right kidney. Innumberable soft tissue nodules in upper abdomen likely metastatic disease. 11/08: CXR: mass like prominence of right hilum 11/11: Abdomen Retroperitoneal biopsy Primary dx: Metastatic B Cell Lymphoma Secondary dx: Afib w/ RVR, resolved; Sinus tachycardia controlled, DVT femoral vein, segmental PE, hx of male breast cancer, Hep C Discharge medications: 1. Tylenol extra strength 1000mg PO q4hr 2. Dulcolax 10mg PO daily PRN 3. Lovenox 70mg PO BID 4. Morphine 4mg IVP q4hr 5. Ondansetron 8mg SL BID PRN 6. Ondansetron 4mg IVP q6hr 7. Protonix 40mg daily 8. Phenergan 25mg IM/IV q6hr 9. Senokot S 2 tab PO BID 10. ASA 81mg daily 11. Metoprolol Tartrate 100mg PO BID 12. Phenytoin 200mg PO HS HPI/Hospital Course: This is a 68 yo M who presented to the ED with a CC of N/V and abdominal pain. The patient has a PMH as stated above. Patient is a poor historian. Patient reports green vomitus as well as constipation. He reports that he has had pain along with N/V for the past 1-2 months. He states that he was recently treated at [facility] for about 3 weeks and was found to have an abdominal mass. He refused to have a biopsy during that time in [place]. He stated on presentation to this facility that he was agreeable to work up and biopsy of mass at this time. Patient met SIRS criteria due to leukocytosis and tachycardia and was covered with broad spectrum abx. These were discontinued as patient remained afebrile and no infectious source was identified. Blood and urine cultures were also negative. WBC downtrended as well as the lactic acid. Procal was negative at 0.19. Patient found to be in Atrial Fibrillation w/ RVR in the ED and was started on a diltiazem drip. The drip was discontinued as patient converted to sinus tachycardia. The patient's tachycardia is controlled with metoprolol. Patient also found to have segmental PE as well as DVT of right femoral vein causing LE swelling. Patient started on therapuetic lovenox. Patient remained vitally stable throughout his stay and has not needed supplemental oxygen since admission. Biopsy on 11/11 of pelvic mass showing CD10 Positive B cell Lymphoma. Imaging as listed above. Patient has been mostly cooperative during his stay but has occasionally refused lab draws as well as medication. He is still having N/V, decreased PO intake, and abdominal pain. These are being controlled with zofran, phenergan, IVF, and morphine. Patient will be transferred to [facility] facility for further work up and treatment of Lymphoma. Disposition: stable, poor prognosis Discharge instruction: 1. Location: [facility] 2. Diet: Reg 3. Activity ad curtis 4. F/u with Physician at [facility]
[2018-11-12 17:46] VITALS: BP 131/75; TEMP 97.7
[2018-11-12] MEDS ORDERED: Metoprolol Tartrate 100 MG TAB PO SCH (21:00)
== END 2018-11-12 19:30 | disposition short-term general hospital (02) | DRG 840 ==
LOC: ERS 19:24 → ERHOLD 11-09 02:12 → EEVIPCON 11-09 02:12 → 2NO 11-09 03:34
PROVIDERS: ADMIT Family Medicine; ATTEND Family Medicine
PROC: 0WBH4ZX Excision of Retroperitoneum, Percutaneous Endoscopic Approach, Diagnostic (ICD-10-PCS; principal; 2018-11-11)
DX: C85.13 Unspecified B-cell lymphoma, intra-abdominal lymph nodes (principal); I26.99 Other pulmonary embolism without acute cor pulmonale; I82.419 Acute embolism and thrombosis of unspecified femoral vein; N13.30 Unspecified hydronephrosis; N17.9 Acute kidney failure, unspecified; B19.20 Unspecified viral hepatitis C without hepatic coma; I48.91 Unspecified atrial fibrillation; N36.8 Other specified disorders of urethra; K29.60 Other gastritis without bleeding; M19.90 Unspecified osteoarthritis, unspecified site; D64.9 Anemia, unspecified; R00.0 Tachycardia, unspecified; Z87.891 Personal history of nicotine dependence; Z85.3 Personal history of malignant neoplasm of breast; Z88.2 Allergy status to sulfonamides; Z79.82 Long term (current) use of aspirin; Z79.899 Other long term (current) drug therapy
CPT/HCPCS: 36415; 36416; 49180; 71045; 71275; 74177; 77012; 80048; 80053; 81003; 81015; 83605; 83690; 84145; 84484; 85025; 85610; 85730; 87040; 87086; 88184; 93005; 94760; 96361; 96365; 96366; 96368; 96372; 96375; 96376; C9113; J1650; J2250; J2270; J2405; J2543; J2550; J3010; J3370; J3490; J7050; Q9966